=== PATIENT | female | born 1940 | race Caucasian/White ===

== ENCOUNTER 2017-10-08 12:17 | Emergency (ER) | payer MEDICARE ==
[~2017-10-08] VITALS: Ht 154.9 cm; Wt 69.3 kg
[2017-10-08 12:33] VITALS: BP 118/62
[2017-10-08] MEDS ORDERED: mupirocin 2% ointment 22GM TP STA (12:39)
[2017-10-08] MEDS ORDERED: CEPH-572 PO (12:40)
[2017-10-08] MEDS ORDERED: mupirocin 2% nasal ointment 1gm UD NS STA (12:41)
[2017-10-08] MEDS ORDERED: MUPI22OI30 TOP (12:54)
== END 2017-10-08 13:40 | disposition home or self-care (01) ==
LOC: ER 12:17
DX: S90.414A Abrasion, right lesser toe(s), initial encounter (principal); E11.40 Type 2 diabetes mellitus with diabetic neuropathy, unspecified; Z79.2 Long term (current) use of antibiotics; Z88.5 Allergy status to narcotic agent; Z88.2 Allergy status to sulfonamides; X58.XXXA Exposure to other specified factors, initial encounter; Y93.89 Activity, other specified; Y92.89 Other specified places as the place of occurrence of the external cause; Y99.8 Other external cause status
CPT/HCPCS: 99283; A6222

== ENCOUNTER 2024-04-28 16:21 | Emergency (ER) | payer MEDICARE ==
[~2024-04-28] VITALS: Ht 152.4 cm; Wt 69.8 kg
[2024-04-28 17:45] VITALS: BP 141/68; PULSE 86; TEMP 97.8; O2SAT 98
[2024-04-28] MEDS ORDERED: silver sulfadiazine cream 400gm jar TP STA (19:14)
[2024-04-28 20:30] VITALS: RESP 16
[2024-04-28] MEDS: vitamin A & D ointment-NF 1 APPLIC TUBE TP ONE (20:37)
== END 2024-04-28 20:44 | disposition home or self-care (01) ==
LOC: ER 16:22
DX: S70.322A Blister (nonthermal), left thigh, initial encounter (principal); E11.9 Type 2 diabetes mellitus without complications; T78.40XA Allergy, unspecified, initial encounter; Z88.2 Allergy status to sulfonamides; Z88.5 Allergy status to narcotic agent; X58.XXXA Exposure to other specified factors, initial encounter; Y93.89 Activity, other specified; Y92.89 Other specified places as the place of occurrence of the external cause; Y99.8 Other external cause status
CPT/HCPCS: 99282; A6253; A6449